=== PATIENT | female | born 1985 | race Caucasian/White ===

== ENCOUNTER → 2017-10-24 | Outpatient (CLI) | payer OTHER ==
[~2017-10-24] MED LIST: BIRTH CONTROL; IBUP-1222 PO; NONE PER PT; PENI500T PO; PRENATAL PO
[2017-10-24 11:01] LABS: HEMATOCRIT 44.9 % (34.6-47.8); HEMOGLOBIN 15.4 g/dL (11.7-16.4); WHITE BLOOD COUNT 9.3 x10^3/uL (3.4-10)
[2017-10-24 11:12] LABS: ASPARTATE AMINO TRANSFERASE 8 U/L (15-37); BLOOD UREA NITROGEN 9 mg/dL (7-18)
[2017-10-24 11:55] LABS: PATH.CAST-FLAG NOT PRESENT; SPERM-FLAG NOT PRESENT; SRC-FLAG NOT PRESENT; XTAL-FLAG NOT PRESENT; YLC-FLAG NOT PRESENT
== END | disposition home or self-care (01) ==
LOC: STAR 09:37
PROVIDERS: ATTEND Obstetrics & Gynecology
DX: Z01.818 Encounter for other preprocedural examination (principal)
CPT/HCPCS: 36415; 80053; 81001; 85025

== ENCOUNTER 2017-10-31 06:02 | Day surgery (SDC) | payer OTHER ==
[~2017-10-31] VITALS: Ht 162.6 cm; Wt 100.1 kg
[2017-10-31] MEDS ORDERED: SILVER NITRATE STICK TP ONE ×2 (06:41→09:19)
[2017-10-31] MEDS ORDERED: EPINEPHRINE 1 MG/ML, 1ML ONE (06:41)
[2017-10-31] MEDS ORDERED: BUPIVACAINE/PF 0.25% ONE (06:41)
[2017-10-31 06:45] VITALS: BP 99/69
[2017-10-31] MEDS ORDERED: LACTATED RINGERS 1,000 ML IV SCH (06:48)
[2017-10-31 06:52] LABS: HCG UR LOT HCG7030192
[2017-10-31 06:56] LABS: HCG UR OBC PASS
[2017-10-31] MEDS ORDERED: LIDOCAINE 1%, 2ML SQ PRN (07:00)
[2017-10-31] MEDS ORDERED: PROPOFOL 10 MG/ML, 20ML ONE (07:27)
[2017-10-31] MEDS ORDERED: MIDAZOLAM 1 MG/ML, 2ML ONE (07:27)
[2017-10-31] MEDS ORDERED: FENTANYL PF 250 MCG/5ML ONE (07:27)
[2017-10-31] MEDS ORDERED: SUCCINYLCHOLINE 20 MG/ML, 10ML ONE (07:27)
[2017-10-31] MEDS ORDERED: DEXAMETHASONE 4 MG/ML, 1ML ONE (07:27)
[2017-10-31] MEDS ORDERED: ROCURONIUM 10 MG/ML,10ML ONE (07:27)
[2017-10-31] MEDS ORDERED: ONDANSETRON 2MG/ML, 2ML ONE (07:27)
[2017-10-31] MEDS ORDERED: BUPIVACAINE/PF-EPI 0.25% 1:200K INFIL ONE (07:59)
[2017-10-31] MEDS ORDERED: FENTANYL PF 100 MCG/2ML IV PRN (08:30)
[2017-10-31] MEDS ORDERED: ONDANSETRON 2MG/ML, 2ML IVPush PRN (08:30)
[2017-10-31] MEDS ORDERED: hydrALAzine 20 MG/ML, 1ML IV PRN (08:30)
[2017-10-31] MEDS ORDERED: MIDAZOLAM 1 MG/ML, 2ML IV PRN (08:30)
[2017-10-31] MEDS ORDERED: MEPERIDINE/PF 25MG/0.5ML IVPush PRN (08:30)
[2017-10-31] MEDS ORDERED: PROMETHAZINE 25 MG/ML, 1ML IV PRN (08:30)
[2017-10-31] MEDS ORDERED: ACETAMINOPHEN 325 MG TABLET PO PRN (08:30)
[2017-10-31] MEDS ORDERED: LABETALOL 5MG/ML, 20ML IV PRN (08:30)
[2017-10-31] MEDS ORDERED: OXYcodone 5 MG/5 ML ORAL.SOL UDC PO PRN (08:30)
[2017-10-31] MEDS ORDERED: ALBUTEROL SULFATE 2.5 MG/3 ML NPPB PRN (08:30)
[2017-10-31] MEDS ORDERED: HYDROmorphone 1 MG/ML, 1ML IV PRN (08:30)
== END 2017-10-31 12:00 ==
LOC: OUT 06:02
PROVIDERS: ATTEND Obstetrics & Gynecology
DX: Z30.433 Encounter for removal and reinsertion of intrauterine contraceptive device (principal); Z98.890 Other specified postprocedural states
CPT/HCPCS: 36415; 49320; 58300; 81025; 86850; 86900; J0171; J0330; J1100; J2250; J2405; J2704; J3010; J3490; J7120; J7298